=== PATIENT | female | born 2000 | race Caucasian/White ===

== ENCOUNTER → 2019-04-16 | Outpatient (CLI) | payer BC | LOC: BHSO 10:09 | DX: F41.1 Generalized anxiety disorder (principal) ==

== ENCOUNTER → 2019-05-07 | Outpatient (CLI) | payer BC | LOC: BHSO 12:52 | DX: F41.1 Generalized anxiety disorder (principal) ==

== ENCOUNTER → 2019-05-08 | Outpatient (CLI) | payer BC | LOC: BHSO 11:07 | DX: F33.41 Major depressive disorder, recurrent, in partial remission (principal) ==

== ENCOUNTER → 2019-06-07 | Outpatient (CLI) | payer BC | LOC: BHSO 09:00 | DX: F41.1 Generalized anxiety disorder (principal) ==

== ENCOUNTER → 2019-06-12 | Outpatient (CLI) | payer BC | LOC: BHSO 08:21 | DX: F33.41 Major depressive disorder, recurrent, in partial remission (principal) | CPT/HCPCS: G0463 ==

== ENCOUNTER → 2019-06-18 | Outpatient (CLI) | payer BC | LOC: BHSO 15:57 | DX: F41.1 Generalized anxiety disorder (principal) ==

== ENCOUNTER → 2019-07-05 | Outpatient (CLI) | payer BC | LOC: BHSO 15:05 | DX: F41.1 Generalized anxiety disorder (principal) ==

== ENCOUNTER → 2019-07-13 | Outpatient (CLI) | payer BC | LOC: BHSO 15:05 | DX: F33.42 Major depressive disorder, recurrent, in full remission (principal) | CPT/HCPCS: G0463 ==

== ENCOUNTER → 2019-07-27 | Outpatient (CLI) | payer BC | LOC: BHSO 13:01 | DX: F33.1 Major depressive disorder, recurrent, moderate (principal) ==

== ENCOUNTER → 2019-11-01 | Outpatient (CLI) | payer BC | LOC: BHSO 09:40 → BHSTELE 09:40 | DX: F33.41 Major depressive disorder, recurrent, in partial remission (principal) | CPT/HCPCS: G0463 ==

== ENCOUNTER → 2020-01-30 | Outpatient (CLI) | payer BC | LOC: BHSO 15:56 | DX: F33.42 Major depressive disorder, recurrent, in full remission (principal) | CPT/HCPCS: G0463 ==